=== PATIENT | female | born 1940 | race Caucasian/White ===

== ENCOUNTER 2018-02-27 12:19 | Emergency (ER) | payer MEDICARE ==
[~2018-02-27] VITALS: Ht 165.1 cm; Wt 98.0 kg
[2018-02-27 14:16] LABS: ALBUMIN 3.7 G/DL (3.4-5.0); ANION GAP 9 (8-16); BLOOD UREA NITROGEN 13 MG/DL (7-18); BUN/CREATININE RATIO 16.3 (6.6-38.0); CALCIUM 9.2 MG/DL (8.5-10.1); CHLORIDE 104 MMOL/L (99-107); GLUCOSE 111 MG/DL (70-104); POTASSIUM 4.2 MMOL/L (3.5-5.1); SODIUM 142 MMOL/L (135-145); TOTAL CARBON DIOXIDE 28.9 MMOL/L (24-32); TROPONIN I < 0.04 NG/ML (0.0-0.05); eGFR 70 ML/MIN
[2018-02-27] MEDS ORDERED: ASPI81TA52 PO (14:16)
[2018-02-27] MEDS ORDERED: METO-395 PO (14:16)
[2018-02-27 14:35] VITALS: BP 167/89
[2018-02-27] MEDS ORDERED: cloNIDine 0.1 mg tablet PO ONE (14:35)
[2018-02-27] MEDS ORDERED: amLODIPine 5mg tablet PO ONE (14:35)
[2018-02-27 15:23] LABS: CLARITY,URINE CLEAR (Clear); COLOR,URINE YELLOW (Yellow); GLUCOSE, URINE NEGATIVE (Neg); KETONES,URINE NEGATIVE (Neg); LEUKOCYTE ESTERASE ,URINE NEGATIVE (Neg); NITRITES, URINE NEGATIVE (Neg); OCCULT BLOOD,URINE NEGATIVE (Neg); PH,URINE 5.5 (4.8-8.0); PROTEIN,URINE NEGATIVE (Neg); UROBILINOGEN,URINE 0.2 E.U/dL (0.2-1.0)
[2018-02-27 15:26] LABS: UA COLLECTION TYPE CLN CATCH MIDSTREAM
== END 2018-02-27 15:58 | disposition home or self-care (01) ==
LOC: ER 12:20
DX: I10 Essential (primary) hypertension (principal); R35.0 Frequency of micturition; I95.1 Orthostatic hypotension; R42 Dizziness and giddiness; Z79.82 Long term (current) use of aspirin; Z79.899 Other long term (current) drug therapy
CPT/HCPCS: 36415; 80048; 81003; 84484; 93005; 99285